=== PATIENT | male | born 1950 | race Two or more races ===

== ENCOUNTER 2016-12-07 07:54 | Inpatient (IN) | payer OTHER ==
[~2016-12-07 07:54] MED LIST: AVITENE POWDER 1 GM JAR TP ONE; BACITRACIN 50,000 UNITS/10 ML SYR IRR ONE; BUPIVACAINE/EPI 0.25% 30 ML SDV ONE; MANNITOL 20% 100 GM/500 ML BAG IV ONE; THROMBIN (BOVINE) 5,000 UNIT VIAL TP ONE
[2016-12-07] MEDS ORDERED: GADOBUTROL 10 ML VIAL IVP ONE (08:27)
[2016-12-07] MEDS ORDERED: LIDOCAINE 1% 2 ML INJ ONE (08:32)
[2016-12-07] MEDS ORDERED: DEXAMETHASONE 10 MG/ML VIAL IVP ONE (09:00)
[2016-12-07] MEDS ORDERED: CEFUROXIME 1,500 MG in NS 50 ML IV ONE (09:00)
[2016-12-07] MEDS ORDERED: levETIRAcetam 750 MG in NS 100 ML IV ONE (09:00)
[2016-12-07 09:10] LABS: CREATININE 1.1 mg/dL (0.7-1.3); GLOMERULAR FILTRATION RATE > 60
[2016-12-07 09:11] LABS: INR 1.07 (0.83-1.16); PROTIME(PATIENT) 13.8 SEC (12.0-15.0)
[2016-12-07] MEDS ORDERED: PROPOFOL/EMULSION 500 MG/50 ML BOTTLE IV ONE ×2 (10:34→13:03)
[2016-12-07] MEDS ORDERED: LIDOCAINE 2% 5 ML SDV ONE (10:35)
[2016-12-07] MEDS ORDERED: GLYCOPYRROLATE 0.2 MG/1 ML VIAL ONE (10:35)
[2016-12-07] MEDS ORDERED: ROCURONIUM 100 MG/10 ML VIAL ONE (10:35)
[2016-12-07] MEDS ORDERED: MIDAZOLAM 2 MG/2 ML VIAL ONE (11:35)
[2016-12-07] MEDS ORDERED: fentaNYL 250 MCG/5 ML INJ ONE (11:47)
[2016-12-07] MEDS ORDERED: PETROLAT,WHT/MIN OIL/SOD CHL 3.5 GM OPHT.OINT ONE (12:01)
[2016-12-07] MEDS ORDERED: fentaNYL 100 MCG/2 ML INJ ONE (13:02)
[2016-12-07 13:14] LABS: ADD DIFF? YES; ADD MORPH? NO; ADD SCAN? NO; ATYPICAL LYMPHOCYTE FLAG 80 (0-99); FRAGMENT RBC FLAG 0 (0-99); HEMATOCRIT 36.2 % (40.0-51.0); HEMOGLOBIN 12.3 g/dL (13.7-17.5); LEFT SHIFT FLG 50 (0-99); LIPEMIA HEMOLYSIS FLAG 90 (0-99); MEAN CELL HEMOGLOBIN 33.7 pg (27.9-34.1); MEAN CELL VOLUME 99.2 fL (81.5-99.8); MEAN PLATELET VOLUME 10.5 fL (8.7-11.7); PLATELET CLUMPS FLAG 0 (0-99); PLATELET COUNT 260 10^3/uL (150-400); RED BLOOD CELL COUNT 3.65 10^6/uL (4.40-6.38); RED CELL DISTRIBUTION WIDTH 17.2 % (11.5-15.2)
[2016-12-07] MEDS ORDERED: PHENYLEPHRINE HCL 100 MCG/ML SYR ONE (13:38)
[2016-12-07 13:54] LABS: LARGE PLATELETS PRESENT; PLATELET ESTIMATE ADEQUATE (ADEQ)
[2016-12-07] MEDS ORDERED: ONDANSETRON 4 MG/2 ML VIAL ONE (14:21)
[2016-12-07] MEDS ORDERED: SUGAMMADEX SODIUM 200 MG/2 ML VIAL IVP ONE (14:21)
[2016-12-07] MEDS ORDERED: MAGNESIUM HYDROXIDE 30 ML UDCUP PO PRN (14:30)
[2016-12-07] MEDS ORDERED: BISACODYL 10 MG SUPP PR PRN (14:30)
[2016-12-07] MEDS ORDERED: LACTULOSE 20 GM/30 ML UDCUP PO PRN (14:30)
[2016-12-07] MEDS ORDERED: PROMETHAZINE HCL 25 MG TAB PO PRN (14:36)
[2016-12-07] MEDS ORDERED: ONDANSETRON 4 MG/2 ML VIAL IVP PRN (14:36)
[2016-12-07] MEDS ORDERED: ACETAMINOPHEN 325 MG TAB PO PRN ×2 (14:36→17:51)
[2016-12-07] MEDS ORDERED: HYDROCODONE/APAP 10/325 TAB PO PRN (14:36)
[2016-12-07] MEDS ORDERED: niCARdipine/NACL 200 ML IV PRN (14:36)
[2016-12-07] MEDS ORDERED: HYDROmorphONE/DILAUDID 1 MG/ML SYR IVP PRN (14:36)
[2016-12-07] MEDS ORDERED: traMADol 50 MG TAB PO PRN (14:44)
--- NOTE | 2016-12-07 14:47 | SOAPPROG ---
SOAP Progress Note Assessment/Plan: Assessment: 66 yo M sp redo left occipital craniotomy for resection of recurrent tumor Plan: stable to ICU MRI tonight on keppra on decadron please call with neuro changes 12/07/16 14:45 Subjective: + headache, no N/V. Objective: Laboratory Results 12/07/16 13:03 12/07/16 08:50 PT 13.8 SEC (12.0-15.0) 12/07/16 08:50 INR 1.07 (0.83-1.16) 12/07/16 08:50 AAOX4, +FC PERRL, right visual field cuts, no facial droop HUGO x 4 + light touch ICD10 Worksheet Patient Problems: Problems Problem Status Onset Tumor, metastatic Acute
--- NOTE | 2016-12-07 14:57 | GOP ---
[f rep st] OPERATIVE REPORT DATE OF OPERATION: 12/07/2016 SURGEON: Ildefonso Reyez MD THRESHING DEPARTMENT SUPERVISOR: ALANA Darling. ANESTHESIA: General endotracheal. PREOPERATIVE DIAGNOSIS: 1. Recurrent left occipital lesion. 2. Intractable headaches. 3. Failed conservative care. POSTOPERATIVE DIAGNOSIS: 1. Recurrent left occipital lesion. 2. Intractable headaches. 3. Failed conservative care. PROCEDURE PERFORMED: Redo left occipital craniotomy for exploration/biopsy/resection of supratentor ial recurrent metastatic tumor. Use of intraoperative microscopy and computer volumetric stereotact ic navigation. FINDINGS: ESTIMATED BLOOD LOSS: Trace. INDICATIONS: The patient is a 66-year-old man with a history of metastatic brain cancer, who has a recurrent and enlarging enhancing lesion in the perioperative bed, associated with intractable heada ches. This patient's films and history have been reviewed in great detail at the tumor board with [facility]loe [facility] neurosurgeons and oncologists and radiation oncologists, as well as radiologists, and it is felt to be in the patient's best interest to proceed with redo surgical intervention. DESCRIPTION OF PROCEDURE: After informed consent was obtained, the patient was taken to the operati ng room and placed in the lateral position with the head in a Nazario head control clerk. The [employer] ronavigational system was connected and verified, and using computer volumetric stereotactic navigat ion the ideal location for the incision and craniotomy were identified to be over the previous crani otomy flap. The old incision was carefully opened and angled forward. The skin and galea were refl ected anteriorly and inferiorly, and the prior craniotomy flap was carefully drilled out and the scr ews were removed. The bone flap was carefully lifted off the dura, which was meticulously dissected off the brain. There was a significant amount of abnormal tissue, but it was difficult to tell whe ther this is radiation necrosis or tumor. Using computer volumetric stereotactic navigation in conj unction with real-time ultrasonography and the high-power microscope, we determined which tissue alexei eared to be abnormal and most likely tumor, and this was carefully resected. There was some deep ti ssue that was very, very suspicious for tumor, and this was removed and sent for specimen, along wit h the other abnormal tissue. Following careful inspection of all areas, using high-power microscopy as well as intraoperative ultrasound and using the computer volumetric stereotactic navigation, an aggressive re-resection was performed and meticulous hemostasis was achieved. The wound was copious ly irrigated and what was left of the dura was reapproximated with interrupted 4-0 Nurolon sutures f ollowed by [employer]. The craniotomy flap was replaced using titanium plates and screws. A drain was placed and the wound was closed in layered fashion using interrupted Vicryl sutures followed by sta ples in the skin. COMPLICATIONS: None. DISPOSITION: The patient is currently in the process of being repositioned for extubation. /[id number]/MODL
[2016-12-07] MEDS ORDERED: *MD ORDERING ONLY-DEXAMETHASONE TAPER IVP/PO SCH (15:00)
[2016-12-07] MEDS: NS W/ 20 KCl/L 1,000 ML IV SCH (15:55)
[2016-12-07] MEDS: DEXAMETHASONE 4 MG TAB PO SCH ×2 (16:31→21:24)
[2016-12-07] MEDS: POLYETHYLENE GLYCOL 3350 17 GM PKT PO SCH ×2 (16:38→22:19)
[2016-12-07] MEDS ORDERED: DIAZEPAM 5 MG TAB PO ONE (18:30)
[2016-12-07] MEDS: CEFUROXIME 1,500 MG in NS 50 ML IV SCH (20:35)
[2016-12-07] MEDS: SENNOSIDES/DOCUSATE SODIUM TAB PO SCH (21:25)
[2016-12-07] MEDS: metroNIDAZOLE 500 MG TAB PO SCH (21:25)
[2016-12-08] MEDS: NS W/ 20 KCl/L 1,000 ML IV SCH (03:00)
[2016-12-08] MEDS: DEXAMETHASONE 4 MG TAB PO SCH ×2 (04:12→08:45)
[2016-12-08] MEDS: CEFUROXIME 1,500 MG in NS 50 ML IV SCH (04:12)
[2016-12-08 04:56] LABS: ANION GAP 7 mEq/L (8-16); CALCIUM 8.2 mg/dL (8.5-10.4); CARBON DIOXIDE 24 mEq/l (22-31); CHLORIDE 109 mEq/L (97-110); GLOMERULAR FILTRATION RATE > 60; GLUCOSE 176 mg/dL (70-100); POTASSIUM 4.8 mEq/L (3.5-5.2); SODIUM 140 mEq/L (134-144)
[2016-12-08 05:00] LABS: % IMMATURE GRANULYOCYTES 2.8 % (0.0-1.1); ADD DIFF? NO; ADD MORPH? NO; ADD SCAN? NO; ATYPICAL LYMPHOCYTE FLAG 20 (0-99); FRAGMENT RBC FLAG 0 (0-99); HEMATOCRIT 36.5 % (40.0-51.0); HEMOGLOBIN 12.5 g/dL (13.7-17.5); LEFT SHIFT FLG 30 (0-99); LIPEMIA HEMOLYSIS FLAG 90 (0-99); MEAN CELL HEMOGLOBIN 33.9 pg (27.9-34.1); MEAN CELL HEMOGLOBIN CONCENTR. 34.2 g/dL (32.4-36.7); MEAN CELL VOLUME 98.9 fL (81.5-99.8); MEAN PLATELET VOLUME 10.5 fL (8.7-11.7); PLATELET CLUMPS FLAG 10 (0-99); PLATELET COUNT 282 10^3/uL (150-400); RED BLOOD CELL COUNT 3.69 10^6/uL (4.40-6.38); RED CELL DISTRIBUTION WIDTH 17.3 % (11.5-15.2)
[2016-12-08] MEDS ORDERED: DIAZEPAM 5 MG TAB PO ONE ×2 (05:30→09:00)
[2016-12-08 07:16] VITALS: TEMP 97.6
--- NOTE | 2016-12-08 08:24 | NEUSURGPN ---
Assessment/Plan: Assessment: 66 yo M sp redo left occipital craniotomy for resection of recurrent tumor Plan: Neuro stable and doing well. 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 Denies headache, nausea, vomiting. Still has visual field defects right > left eye same as preop. Voiding, drinking, eating well. Objective: VSS, NAD Right peripheral field diminished in comparison to left PERRL, EOMI CN II-XII grossly intact BUE/BLE 5/5= Sensation intact to lt touch Incision c/d/i-stapled Catheter Insertion Date: 12/07/16 - Physician Discussed Patient with : [facility] Physical Exam - Vitals, I&O, Labs I and O 12/07/16 12/08/16 12/09/16 05:59 05:59 05:59 Intake Total 2488 Output Total 1660 Balance 828 Intake: Oral (ml) 650 IV Intake (ml) 850 IV Infused (ml) 988 NS W/ 20 KCl/L 1,000 ml @ 988 100 mls/hr IV CONT WADE Rx#:[id number] Output: Urine (ml) 1600 Catheter 1600 Estimated Blood Loss (ml) 25 Wound Drainage (ml) 35 #1 Head James Garcia 35 Vital Signs Temp Pulse Resp BP Pulse Ox 36.4 C 76 22 H 99/69 L 93 12/08/16 07:00 12/08/16 07:00 12/08/16 07:00 12/08/16 06:00 12/08/16 07:00 Laboratory Results 12/08/16 04:15 12/08/16 04:15 ICD10 Worksheet Patient Problems: Problems Problem Status Onset Tumor, metastatic Acute
[2016-12-08] MEDS ORDERED: GADOBUTROL 10 ML VIAL IVP ONE (08:42)
[2016-12-08] MEDS: SENNOSIDES/DOCUSATE SODIUM TAB PO SCH (08:43)
[2016-12-08] MEDS: metroNIDAZOLE 500 MG TAB PO SCH ×2 (08:43→14:57)
[2016-12-08] MEDS: POLYETHYLENE GLYCOL 3350 17 GM PKT PO SCH ×2 (08:45→14:58)
[2016-12-08] MEDS ORDERED: levETIRAcetam 500 MG TAB PO SCH (09:00)
[2016-12-08 15:03] VITALS: BP 106/69; PULSE 69; RESP 12; O2SAT 93
[2016-12-08] MEDS ORDERED: DEXAMETHASONE 4 MG TAB PO SCH (16:00)
[2016-12-09] MEDS ORDERED: ENOXAPARIN 40 MG/0.4 ML SYR SC SCH (09:00)
[2016-12-09] MEDS ORDERED: DEXAMETHASONE 2 MG TAB PO SCH (16:00)
[2016-12-10] MEDS ORDERED: ENOXAPARIN 40 MG/0.4 ML SYR SC SCH (09:00)
[2016-12-10] MEDS ORDERED: DEXAMETHASONE 2 MG TAB PO SCH (16:00)
--- NOTE | 2016-12-23 16:29 | GDS ---
[f rep st] DISCHARGE SUMMARY ADMISSION DIAGNOSIS: Recurrent left occipital lesion. DISCHARGE DIAGNOSIS: Status post redo craniotomy for resection of recurrent occipital lesion. HISTORY AND PHYSICAL: Please see admission history and physical. HOSPITAL COURSE: The patient is a 66-year-old male with a history of known metastatic renal cell ca rcinoma. He was followed with serial MRIs and was found to have an enlarging post contrast enhancin g lesion within his left occipital lobe extending toward the left lateral ventricle. He was taken t o the operating room on 12/07/2016, where he underwent a redo left-sided craniotomy for resection of his left occipital lesion. There were no intraoperative complications, and he was admitted to the ICU for observation. Postoperative MRI demonstrated good resection of this lesion with a small amou nt of postcontrast enhancement closer to the ventricle. Final pathology reports indicated this lesi on to be metastatic renal cell carcinoma. The patient was ambulating on his own and tolerating a regular diet. He was discharged home in stab le condition on 12/08/2016. Patient was discharged with craniotomy instructions and recommended he return for a neurosurgical followup appointment in 10-14 days. /[id number]/MODL
== END 2016-12-08 15:00 | disposition home or self-care (01) | DRG 27 ==
LOC: F3E 07:54 → F2N 15:31
PROVIDERS: ADMIT Neurological Surgery; ATTEND Neurological Surgery
PROC: 00B00ZX Excision of Brain, Open Approach, Diagnostic (ICD-10-PCS; principal; 2016-12-07 11:30)
DX: C79.31 Secondary malignant neoplasm of brain (principal); Z85.528 Personal history of other malignant neoplasm of kidney; Z92.3 Personal history of irradiation
CPT/HCPCS: 92523-GN; 97161-GP; 97165-GO; A9585; C1713; G8978-GP-CI; G8979-GP-CI; G8980-GP-CI; G8987-GO-CI; G8988-GO-CI; G8989-GO-CI; G9168-GN-CK; G9169-GN-CJ; J0697; J1170; J1953; J2250; J2370; J2405; J2704; J3010